=== PATIENT | female | born 1940 | race Caucasian/White ===

== ENCOUNTER 2021-01-11 13:20 | Outpatient (CLI) | payer MEDICARE | END 2021-01-11 13:21 | disposition home or self-care (01) | LOC: CSHCT 13:20 | PROVIDERS: ATTEND Physician Assistant | DX: S06.5X9A Traumatic subdural hemorrhage with loss of consciousness of unspecified duration, initial encounter (principal) | CPT/HCPCS: 70450 ==

== ENCOUNTER 2021-02-04 09:29 | Outpatient (CLI) | payer MEDICARE | END 2021-02-04 09:30 | disposition home or self-care (01) | LOC: CSHCT 09:29 | PROVIDERS: ATTEND Neurological Surgery | DX: I62.00 Nontraumatic subdural hemorrhage, unspecified (principal) | CPT/HCPCS: 70450 ==

== ENCOUNTER 2022-09-14 15:03 | Emergency (ER) | payer OTHER | END 2022-09-14 18:41 | disposition home or self-care (01) | LOC: CSHERS 15:03 | DX: S05.12XA Contusion of eyeball and orbital tissues, left eye, initial encounter (principal); I25.10 Atherosclerotic heart disease of native coronary artery without angina pectoris; E11.22 Type 2 diabetes mellitus with diabetic chronic kidney disease; I12.0 Hypertensive chronic kidney disease with stage 5 chronic kidney disease or end stage renal disease; N18.6 End stage renal disease; W01.10XA Fall on same level from slipping, tripping and stumbling with subsequent striking against unspecified object, initial encounter; Y92.009 Unspecified place in unspecified non-institutional (private) residence as the place of occurrence of the external cause | CPT/HCPCS: 70450; 93005 ==

== ENCOUNTER 2022-09-25 00:40 | Emergency (ER) | payer OTHER ==
[2022-09-25 01:46] LABS: #Basophils 0.1 10x3/uL (0.0-0.2); #Eosinphils 0.2 10x3/uL (0.0-0.5); #Monocytes 0.9 10x3/uL (0.0-1.1); #Neutrophils 4.9 10x3/uL (1.5-8.4); %Basophils 0.7 % (0.0-2.0); %Eosinophils 1.9 % (0.0-6.0); %Lymphocytes 25.4 % (18.0-47.0); %Neutrophils 60.6 % (40.0-75.0); Hemoglobin 11.6 g/dL (12.0-15.5); Mean Corpuscular Hemoglobin 31.3 pg (27.0-33.0); Mean Corpuscular Volume 94.9 fl (81.6-98.3); Mean Platelet Volume 12.2 fl (7.4-10.4); Platelet Count 140 10x3/uL (150-450); Red Blood Cell (RBC) Count 3.71 10x6/uL (3.90-5.03)
[2022-09-25 01:55] LABS: ALT (SGPT) 25 U/L (8-55); AST (SGOT) 48 U/L (5-34); Albumin 3.5 g/dL (3.4-4.8); Alkaline Phosphatase 117 U/L (40-110); Anion Gap 15 mmol/L (10-20); BUN (Urea Nitrogen) 20 mg/dL (9.8-20.1); Bilirubin, Total 1.3 mg/dL (0.2-1.2); Calc. Creatinine Clearance 0 mL/min (70-130); Calcium 8.4 mg/dL (7.8-10.44); Carbon Dioxide 24 mmol/L (23-31); Chloride 103 mmol/L (98-107); Estimated GFR 39; Globulin 2.7 g/dL (2.4-3.5); Glucose 147 mg/dL (83-110); Potassium 4.1 mmol/L (3.5-5.1); Protein, Total 6.2 g/dL (5.8-8.1); Sodium 138 mmol/L (136-145)
[2022-09-25 02:21] LABS: CKMB 1.9 ng/mL (0-6.6)
[2022-09-25] MEDS ORDERED: Furosemide 100 MG/10 ML VIAL ONE (02:36)
== END 2022-09-25 04:05 ==
LOC: CSHERS 00:40
DX: I11.0 Hypertensive heart disease with heart failure (principal); I50.9 Heart failure, unspecified; R77.8 Other specified abnormalities of plasma proteins; R10.9 Unspecified abdominal pain; R19.7 Diarrhea, unspecified; I25.10 Atherosclerotic heart disease of native coronary artery without angina pectoris; E11.9 Type 2 diabetes mellitus without complications; Z95.1 Presence of aortocoronary bypass graft
CPT/HCPCS: 71045; 74176; 80053; 82553; 83880; 84484; 85025; 93005; 96374; J1940